=== PATIENT | male | born 1995 | race Two or more races ===

== ENCOUNTER 2019-10-01 17:15 | Emergency (ER) | payer BC, SELFPAY ==
[2019-10-01 17:35] VITALS: BP 127/80; PULSE 57; RESP 19; TEMP 36.6; O2SAT 98; BMI 21.9
--- NOTE | 2019-10-01 17:47 | HMH.EDUTC ---
[facility] [place] Disposition Clinical Impression: Exposure to COVID-19 virus Disposition: Home, Self-Care Condition on Discharge: Good Instructions: Preventing the Spread of Coronavirus Discharge Instructions Additional Instructions: Drink plenty of fluids. Take tylenol or ibuprofen for pain or fever. Take the medications as directed. Follow up with your regular doctor. GO TO THE ER FOR ANY WORSENING SYMPTOMS FOLLOW THE DIRECTIONS ON THE COVID-19 HAND OUT THAT WE GAVE YOU REGARDING SELF-ISOLATION UNTIL YOU KNOW YOUR COVID-19 RESULTS Referrals: PCP,No [Primary Care Provider] - Forms: Work/School Release Time of Disposition: 17:49 Medical Decision Making - Medical Records Medical records reviewed: No: I reviewed the patient's medical records. - [place] Inquiry Pt receiving controlled substance: No Vital Signs: 10/01/19 17:35 10/01/19 18:00 Temperature 97.8 F 97.8 F Temperature Source Oral Oral Pulse Rate 57 L Pulse Rate [Radial] 57 L Respiratory Rate 19 19 Blood Pressure 127/80 Blood Pressure [Right Arm] 127/80 Blood Pressure Mean [Right Arm] 95 Blood Pressure Source Automatic Cuff Blood Pressure Source [Right Arm] Automatic Cuff Blood Pressure Position Sitting Blood Pressure Position [Right Arm] Sitting 02 Sat by Pulse Oximetry 98 Oxygen Delivery Method Room Air Room Air [facility] [place] HPI - General Stated complaint: covid test Time Seen by Provider: 10/01/19 17:47 Mode of Arrival: Ambulatory Source of Information: Patient Limitations: No Limitations Description of Symptoms (Recalled from Triage Doc. by RN): exposed to COVID last week. No symptoms HEENT Symptoms (Recalled from RN notes): No Resp Symptoms (Recalled from RN notes): No Skin Symptoms (Recalled from RN notes): No MS Symptoms (Recalled from RN notes): No Functional Status (Recalled from RN notes): wnl - History of Present Illness Provider Complaint: He states that he was exposed to COVID-19 last week. He denies any symptoms or concerns. - Related Data Allergies Allergy/AdvReac Type Severity Reaction Status Date / Time No Known Allergies Allergy Verified 10/01/19 17:38 - Worker's Comp Is this a Worker's Comp case?: No [facility] History - Hepatitis A Screen Drug use history?: No High risk sexual behaviors?: No History of sexually transmitted infection?: No Currently employed?: No Childcare worker?: No Do you have indoor plumbing?: Yes Do you have electricity?: Yes Attestation statement:: This patient has been screened for Hepatitis A risk factors. I have reviewed the patient's past medical history: Yes - Social History Alcohol Intake: never Occupational Status: other ROS Obtained: Yes All systems reviewed & no additional complaints - Constitutional Constitutional: Denies chills, Denies fever(s) - Eyes Eyes: Denies eye discharge - ENT Ears, Nose, Mouth, and Throat: Denies dizziness, Denies otalgia, Denies sore throat - Cardiovascular Cardiovascular: Denies chest pain - Respiratory Respiratory: No chest congestion, No cough, No dyspnea, No stridor, No wheezing - Gastrointestinal Gastrointestingal: Denies: abdominal pain, diarrhea, nausea, reflux Physical Exam - General General appearance: alert, in no apparent distress - Head Head exam: atraumatic, normocephalic, normal inspection - Eye Eye exam: Present: normal appearance, PERRL, EOMI - ENT ENT exam: Present: normal exam, normal oropharynx, mucous membranes moist, TM's normal bilaterally, normal external ear exam - Neck Neck exam: Present: normal inspection, full ROM, trachea midline. Absent: meningismus, lymphadenopathy - Chest Chest inspection: Present: normal inspection, symmetric chest wall rise. Absent: tenderness - Respiratory Respiratory exam: Present: normal lung sounds bilaterally. Absent: respiratory distress - Cardiovascular Cardiovascular exam: Present: regular rate, normal rhythm. Absent: JVD - Abdomina
[2019-10-01 18:00] VITALS: BP 127/80; PULSE 57; RESP 19; TEMP 36.6; O2SAT 98
== END 2019-10-01 18:01 | disposition home or self-care (01) ==
PROVIDERS: Emergency Provider Nurse Practitioner Family
DX: Z20.828 Contact with and (suspected) exposure to other viral communicable diseases (principal)
CPT/HCPCS: 99201; U0003

== ENCOUNTER → 2021-02-02 14:54 | Outpatient (CLI) | payer OTHER, SELFPAY | PROVIDERS: Visit Provider Nurse Practitioner | DX: Z20.822 Contact with and (suspected) exposure to COVID-19 (principal) | CPT/HCPCS: C9803; U0003; U0005 ==

== ENCOUNTER 2024-07-07 18:19 | Emergency (ER) | payer SELFPAY ==
[2024-07-07 18:27] VITALS: BP 132/86; PULSE 85; O2SAT 97
[2024-07-07 18:30] VITALS: BP 129/88; BP 132/86; PULSE 74; PULSE 79; RESP 18; TEMP 36.8; O2SAT 98; O2SAT 99; BMI 22.8
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
--- NOTE | 2024-07-07 18:47 | PC.NURSE ---
Pt ambulatory to x-ray
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
[2024-07-07] MEDS: LIDOCAINE 5% TRANSDERMAL PATCH 1 EACH TD (18:51)
[2024-07-07] MEDS: IBUPROFEN 400 MG TABLET 800 MG PO (18:52)
[2024-07-07] MEDS: ACETAMINOPHEN 500MG TAB 1000 MG PO (18:52)
[2024-07-07] MEDS: METHOCARBAMOL 500MG TABLET 500 MG PO (18:52)
[2024-07-07 19:52] VITALS: BP 127/82; PULSE 65; RESP 18; TEMP 36.6; O2SAT 98
== END 2024-07-07 19:52 | disposition home or self-care (01) ==
PROVIDERS: Emergency Provider Emergency Medicine
DX: M54.50 Low back pain, unspecified (principal); V49.40XA Driver injured in collision with unspecified motor vehicles in traffic accident, initial encounter; Y92.410 Unspecified street and highway as the place of occurrence of the external cause
CPT/HCPCS: 72131; 72192; 99284